=== PATIENT | female | born 1985 | race Caucasian/White ===

== ENCOUNTER 2019-02-22 16:54 | Emergency (ER) | payer MEDICAID, OTHER ==
[~2019-02-22] VITALS: Ht 165.1 cm; Wt 68.0 kg
--- NOTE | 2019-02-22 17:04 | NUR ---
Dr Mendoza at the bedside for MSE.
[2019-02-22] MEDS ORDERED: DOXYCYCLINE HYCLATE 100 MG TABLET ONE (17:12)
[2019-02-22] MEDS ORDERED: NAPROXEN 500 MG TABLET ONE (17:12)
[2019-02-22] MEDS ORDERED: DOXYCYCLINE HYCLATE 100 MG TABLET PO ONE (17:15)
[2019-02-22] MEDS ORDERED: NAPROXEN 500 MG TABLET PO ONE (17:15)
[2019-02-22 17:18] VITALS: BP 101/77
--- NOTE | 2019-02-22 17:19 | NUR ---
Patient discharged to home in stable conditon. Written and verbal after care instructions given. Patient verbalizes understanding of instructions.
== END 2019-02-22 17:19 | disposition home or self-care (01) ==
LOC: ER 16:54
DX: L03.116 Cellulitis of left lower limb (principal); Z88.0 Allergy status to penicillin
CPT/HCPCS: A4663

== ENCOUNTER 2019-04-27 18:00 | Emergency (ER) | payer MEDICAID ==
[~2019-04-27] VITALS: Ht 165.1 cm; Wt 68.0 kg
--- NOTE | 2019-04-27 18:05 | NUR ---
ERMD at bedside for MSE
[2019-04-27 18:16] VITALS: BP 119/72
== END 2019-04-27 18:18 | disposition home or self-care (01) ==
LOC: ER 18:00
DX: R09.82 Postnasal drip (principal); R05 Cough; Z88.0 Allergy status to penicillin
CPT/HCPCS: A4663

== ENCOUNTER 2019-05-12 18:33 | Emergency (ER) | payer MEDICAID ==
[~2019-05-12] VITALS: Ht 165.1 cm; Wt 59.0 kg
--- NOTE | 2019-05-12 19:40 | NUR ---
Dr. Koo at bedside for MSE.
[2019-05-12] MEDS ORDERED: IPRATROPIUM BROMIDE 0.5 MG/2.5 ML NEBU NEB ONE (19:45)
[2019-05-12] MEDS ORDERED: ALBUTEROL SULFATE 2.5 MG/3 ML NEBU NEB ONE (19:45)
[2019-05-12 20:02] LABS: *URINE HCG, QUAL NEGATIVE (NEGATIVE)
--- NOTE | 2019-05-12 20:12 | NUR ---
Xray at bedside.
[2019-05-12] MEDS ORDERED: ALBUTEROL SULFATE 2.5 MG/3 ML NEBU ONE (20:18)
[2019-05-12] MEDS ORDERED: IPRATROPIUM BROMIDE 0.5 MG/2.5 ML NEBU ONE (20:18)
--- NOTE | 2019-05-12 20:25 | NUR ---
Respiratory at bedside.
[2019-05-12 21:20] VITALS: BP 115/68
--- NOTE | 2019-05-12 21:20 | NUR ---
Patient discharged to home in stable conditon. Written and verbal after care instructions given. Patient verbalizes understanding of instructions. Patient ambulated out of ER with steady gait, no acute signs of distress, VSS, all belongings taken.
== END 2019-05-12 21:21 | disposition home or self-care (01) ==
LOC: ER 18:33
DX: J30.9 Allergic rhinitis, unspecified (principal); Z88.0 Allergy status to penicillin
CPT/HCPCS: 71046; 84703; A4663; J3590

== ENCOUNTER 2021-05-21 14:02 | Emergency (ER) | payer MEDICAID ==
[~2021-05-21] VITALS: Ht 165.1 cm; Wt 59.9 kg
[2021-05-21 14:22] LABS: *BILIRUBIN,URIN NEGATIVE (NEGATIVE); *BLOOD, URINE 2+ (NEGATIVE); *KETONES,URINE NEGATIVE (NEGATIVE); *UROBILINOGEN,URINE 0.2 E.U./dl (NORMAL); LEUKOCYTE ESTERASE ,URINE 2+ (NEGATIVE); NITRITE, URINE NEGATIVE (NEGATIVE); UGLUCOSE NEGATIVE (NEGATIVE)
[2021-05-21 14:26] LABS: *URINE HCG, QUAL NEGATIVE (NEGATIVE)
[2021-05-21 14:29] LABS: *COLOR,URINE STRAW (YELLOW)
[2021-05-21 14:30] LABS: *CLARITY,URINE HAZY (CLEAR)
[2021-05-21 14:31] LABS: BACTERIA,URINE FEW /HPF (NONE SEEN); SQUAMOUS EPITHELIAL CELL,UR FEW /HPF (NONE SEEN); WBC,URINE 20-50 /HPF (0-3)
[2021-05-21] MEDS ORDERED: CEphaleXIN 500 MG CAPSULE PO ONE (14:45)
[2021-05-21] MEDS ORDERED: PHENAZOPYRIDINE HCL 100 MG TABLET PO ONE (14:45)
[2021-05-21] MEDS ORDERED: PHEN-704 PO (14:47)
[2021-05-21] MEDS ORDERED: CEPH500T PO (14:47)
[2021-05-21] MEDS ORDERED: PHENAZOPYRIDINE HCL 100 MG TABLET ONE (14:52)
[2021-05-21] MEDS ORDERED: CEphaleXIN 500 MG CAPSULE ONE (14:52)
[2021-05-21 15:04] VITALS: BP 120/66
--- NOTE | 2021-05-21 15:05 | NUR ---
Patient discharged to home in stable condition. Written and verbal after care instructions given. Patient verbalizes understanding of instructions. Stressed follow up or return to ER for worsening s/s.
== END 2021-05-21 15:06 | disposition home or self-care (01) ==
LOC: ER 14:02
DX: N39.0 Urinary tract infection, site not specified (principal); Z87.440 Personal history of urinary (tract) infections
CPT/HCPCS: 84703; 87077; 87086; A4663

== ENCOUNTER 2021-09-09 21:24 | Emergency (ER) | payer SELFPAY ==
[~2021-09-09 21:24] MED LIST: CEPH500T PO; PHEN-704 PO
--- NOTE | 2021-09-10 01:13 | NUR ---
Pt not in waiting room.
== END 2021-09-10 01:14 | disposition left against medical advice (07) ==
LOC: ER 21:27
DX: Z53.21 Procedure and treatment not carried out due to patient leaving prior to being seen by health care provider (principal)